=== PATIENT | male | born 1965 | race Caucasian/White ===

== ENCOUNTER → 2022-02-22 | Outpatient (REF) | payer OTHER ==
[~2022-02-22] MED LIST: BYDU1INJ SC; FENO145T7 PO; INVO100T PO; JANU100T PO; LISI40TA4 PO; PANT40TA29 PO; SIMV40TA20 PO; TOPR50TA PO
[2022-02-23 18:15] LABS: MALB URINE SIEMENS 12.9 MG/L; MAU/CREAT RATIO 9.6 MCG/MG (0.0-30.0)
== END ==
LOC: M LAB REF 16:42
PROVIDERS: ATTEND Nurse Practitioner Family
DX: E11.65 Type 2 diabetes mellitus with hyperglycemia (principal)